=== PATIENT | male | born 1970 | race Caucasian/White ===

== ENCOUNTER 2018-09-25 20:34 | Emergency (ER) | payer MEDICAID ==
[~2018-09-25] VITALS: Ht 167.6 cm; Wt 77.0 kg
[2018-09-25] MEDS ORDERED: QUETIAPINE FUMARATE 100MG TABLET PO ONE (21:30)
[2018-09-25 21:48] LABS: BASOPHILS % 0.4 % (0.0-2.0); EOSINOPHILS % 1.8 % (0.0-5.0); HEMATOCRIT. 38.4 % (42.0-52.0); HEMOGLOBIN. 13.4 g/dL (14.0-18.0); LYMPHOCYTES % 27.6 % (20.0-50.0); MEAN CORPUSCULAR HEMOGLOBIN 34.2 pg (28.0-32.0); MEAN CORPUSCULAR VOLUME 97.8 fL (80.0-94.0); MEAN PLATELET VOLUME 7.4 fl (7.4-10.4); MONOCYTES % 10.5 % (2.0-8.0); NEUTROPHILS % 59.7 % (40.0-76.0); PLATELET 99 x1000/uL (130-400); RED BLOOD CELL COUNT 3.92 mill/uL (4.7-6.1); RED CELL DISTRIBUTION WIDTH 14.6 % (11.6-14.6)
[2018-09-25 21:50] LABS: CHLORIDE 107 mEq/L (98-107)
[2018-09-25 21:53] LABS: ETHANOL BLOOD < 10 mg/dL
[2018-09-25 22:44] LABS: METHADONE URINE SCREEN NEGATIVE (NEGATIVE)
[2018-09-25 22:45] LABS: *AMPHETAMINES SCREEN URINE NEGATIVE (NEGATIVE); *BARBITURATES SCREEN URINE NEGATIVE (NEGATIVE); *BENZODIAZEPINES SCREEN URINE NEGATIVE (NEGATIVE); *COCAINE SCREEN URINE NEGATIVE (NEGATIVE); CANNABINOID URINE SCREEN NEGATIVE (NEGATIVE); OPIATES URINE SCREEN NEGATIVE (NEGATIVE); PHENCYCLIDINE URINE SCREEN NEGATIVE (NEGATIVE)
[2018-09-26] MEDS ORDERED: OLANZAPINE 5MG TABLET ODT PO ONE
[2018-09-26] MEDS ORDERED: LORAZEPAM 1MG TABLET PO ONE
[2018-09-27] MEDS: QUETIAPINE FUMARATE 25MG TABLET PO SCH ×2 (02:05→09:39)
[2018-09-27 17:03] VITALS: BP 127/76
== END 2018-09-27 17:10 | disposition home or self-care (01) ==
LOC: ER 20:34
DX: F32.9 Major depressive disorder, single episode, unspecified (principal); R45.851 Suicidal ideations; F20.9 Schizophrenia, unspecified; Z59.0 Homelessness
CPT/HCPCS: 36415; 80305; 80307; 80320; 80329; 84443; 93005; 99284; G0480